=== PATIENT | female | born 1975 | race Caucasian/White ===

== ENCOUNTER 2020-01-29 10:06 | Outpatient (CLI) | payer BC, SELFPAY ==
--- NOTE | ~2020-01-29 | XR_ITS ---
EXAMINATION: XR ankle RT min 3V EXAM DATE: 01/29/2020 10:27 INDICATION: Right ankle sprain, pain. Follow-up. TECHNIQUE: Right ankle frontal, lateral and oblique projections obtained and reviewed. Images were t aken with weightbearing. FINDINGS: The right ankle mortise appears intact. There are no acute fractures or dislocations iden tified. There is no subcutaneous gas. The soft tissue is unremarkable. There are no radiopaque fo reign bodies. IMPRESSION: 1. Unremarkable XR ankle RT min 3V exam. Reviewed, dictated and finalized at location A. RONMENTAL HEALTH AND SAFETY LEADER
== END 2020-01-29 10:07 | disposition home or self-care (01) ==
LOC: ANHIMG 10:13
PROVIDERS: PCP Family Medicine; Visit Provider Podiatrist Foot & Ankle Surgery
DX: S93.401A Sprain of unspecified ligament of right ankle, initial encounter (principal)
CPT/HCPCS: 73610

== ENCOUNTER → 2020-02-05 08:28 | Outpatient (CLI) | payer BC, SELFPAY ==
--- NOTE | ~2020-02-05 | MR_ITS ---
EXAMINATION: MR ankle RT wo con DATE: 02/05/2020 09:09 INDICATION: Right ankle pain. TECHNIQUE: Magnetic resonance imaging (MRI) of the right ankle was performed without intravenous cont rast. Sequences included sagittal PD-weighted FS FSE, sagittal PD-weighted FSE, coronal PD-weighted F S FSE, coronal PD-weighted FSE, axial PD-weighted FS FSE, and axial PD-weighted FSE. COMPARISON: Right ankle radiographs 01/29/2020 FINDINGS: Medial ankle ligaments: There are changes of prior sprain of superficial component of the deltoid ligament characterized by i ncreased signal intensity. The deep component of the deltoid ligament is normal. Lateral ankle ligaments: The anterior and posterior talofibular ligaments, calcaneofibular ligament, and anterior and posterio r tibiofibular ligaments are intact. Tendons: There is mild Achilles tendinopathy. The peroneal tendons and medial ankle tendons are normal. Extens or digitorum longus tendon is obscured by magic angle artifact. The anterior ankle tendons are intact . Plantar fascia: Normal. Bones/other: There is a nondisplaced fracture of superior aspect of anterior process of calcaneus. There is edema in extensor hallucis brevis muscle. There is subcutaneous edema superficial to extensor hallucis brev is muscle. There is bone marrow edema in medial aspect of talar head and neck, consistent with contus ion. Partially visualized is edema of head of fifth metatarsal. Fluid: There are small effusions of some of the midfoot joints. IMPRESSION: 1. Nondisplaced fracture of superior aspect of anterior process of calcaneus. 2. Partially visualized edema in head of fifth metatarsal, which may be secondary to a fracture or ar thritis. Right foot radiographs are recommended. Reviewed, dictated and finalized at location A. TIES PAINTER IMPRESSION: 1. Nondisplaced fracture of superior aspect of anterior process of calcaneus. 2. Partially visualized edema in head of fifth metatarsal, which may be seconda ry to a fracture or arthritis. Right foot radiographs are recommended.
== END ==
PROVIDERS: PCP Family Medicine; Visit Provider Podiatrist Foot & Ankle Surgery
DX: S92.002A Unspecified fracture of left calcaneus, initial encounter for closed fracture (principal); S93.401A Sprain of unspecified ligament of right ankle, initial encounter; R60.0 Localized edema
CPT/HCPCS: 73721

== ENCOUNTER → 2020-04-22 03:55 | Outpatient (CLI) | payer BC, SELFPAY ==
[2020-04-23 12:41] LABS: SARS-CoV-2 RNA PCR Positive
== END ==
PROVIDERS: PCP Family Medicine; Visit Provider Podiatrist Foot & Ankle Surgery
DX: Z01.812 Encounter for preprocedural laboratory examination (principal); U07.1 COVID-19
CPT/HCPCS: C9803; U0003; U0005

== ENCOUNTER 2020-04-23 10:01 | Outpatient (CLI) | payer BC, SELFPAY ==
--- NOTE | 2020-04-23 10:03 | ECG_ITS ---
Measurements Intervals Handley Rate: 90 P: 36 NH: 185 QRS: 39 QRSD: 90 T: 14 QT: 340 QTc: 417 Interpretive Statements SINUS RHYTHM NORMAL ECG Electronically Signed On 04-23-2020 10:52:39 INSTRUCTOR ADJUNCT PHARMACY TECHNICIAN by Rony Kearney D.O.
[2020-04-23 10:52] LABS: Anion Gap 7 mmol/L (8-16); Blood Urea Nitrogen 15 mg/dL (7-17); Calcium 8.5 mg/dL (8.4-10.2); Carbon Dioxide 25 mmol/L (22-30); Chloride 105 mmol/L (98-107); Estimated Glomerular Filt Rate > 60; Glucose 141 mg/dL (65-105); Potassium 3.3 mmol/L (3.4-5.0); Sodium 137 mmol/L (137-145)
== END 2020-04-23 10:02 | disposition home or self-care (01) ==
LOC: ANHSURGERY 10:03
PROVIDERS: Anesthesiology; PCP Family Medicine; Visit Provider Podiatrist Foot & Ankle Surgery
DX: Z01.818 Encounter for other preprocedural examination (principal); I10 Essential (primary) hypertension
CPT/HCPCS: 36415; 80048; 93005

== ENCOUNTER 2020-05-30 01:18 | Day surgery (SDC) | payer BC, SELFPAY ==
[2020-04-22 11:54] VITALS: BMI 31.1
--- NOTE | 2020-05-26 10:29 | PC.NURSE ---
PT STATES HEALTH HISTORY UNCHANGED SINCE PHONE INTERVIEW 04/22/20, EXCEPT FOR COVID POSITIVE RESULT. PT STATES SYMPTOMS CONSISTED OF SINUS TYPE SYMPTOMS AND HEADACHE. DENIES RESPIRATORY SYMPTOMS. NEW INSTRUCTIONS FOR DOS REVIEWED WITH PT.
--- NOTE | 2020-05-29 09:50 | P.PNAN_ITS ---
Anes - Initial Pre Proc Eval Procedure: Operation Date: 05/30/20 07:30 Proposed Procedures p Open Arthrotomy Calcaneal Cuboid Joint Right Foot With Removal Fracture Fragment - Jayesh Larkin JR, MD Date/Time: 05/29/20 09:50 Surgeon: Jayesh Larkin JR, MD Pre Op Diagnosis: Fx Frag, anterior calcaneous rt foot Patient Data Age: 44 Gender: F Height: 1.57 m Weight: 77.3 kg Allergies Allergy/AdvReac Type Severity Reaction Status Date / Time latex Allergy Severe Hives Verified 05/30/20 06:29 Penicillins Allergy Severe Difficulty Verified 05/30/20 06:29 Breathing Home Medications Medication Instructions Recorded Confirmed Type duloxetine 60 mg PO DAILY 04/22/20 05/30/20 History lisinopril-hydrochlorothiazide 1 tablet PO DAILY 04/22/20 05/30/20 History Patient hx anesthesia problems: post op nausea/vomiting Family hx anesthesia problems: none [facility], [facility] Past Medical History Medical History (Updated 05/29/20 @ 09:51 by Kevin Schaefer DO) Hypertension Migraine PONV (postoperative nausea and vomiting) Surgical History Surgical History (Updated 05/29/20 @ 09:51 by Kevin Schaefer DO) History of cholecystectomy History of tonsillectomy Social History Social History Smoking status: Never smoker Living arrangements: with family Spiritual care concerns: No Anes - Eval Final PreProcedure Day of Procedure 05/29/20 09:50 Patient weight: obese Heart: regular rate and rhythm Lungs: clear to auscultation and normal air movement Airway: Mallampati scale class III Neurological: alert and oriented Last oral intake: >/= 8 hours ASA classification: III Emergent: no Anesthetic plan: proceed Anesthesia type and monitoring: general LMA and standard monitoring Informed Consent: The patient's anesthetic plan and its attendant risks and benefits were discussed with the patient/family/POA. Questions were solicited and answers provided to the satisfaction of the patient/family/POA.
[2020-05-30] VITALS (8 sets, daily range): BP systolic 118–147; BP diastolic 66–93; PULSE 80–98; RESP 10–16; TEMP 36.2–37; O2SAT 97–100
--- NOTE | ~2020-05-30 | XR_ITS ---
EXAMINATION: XR surgery orthopedic EXAM DATE: 05/30/2020 08:26 INDICATION: Right foot surgery. TECHNIQUE: Fluoroscopy used during XR surgery orthopedic performed by Dr. Jayesh Larkin JR MD. Radiologist was not present for the imaging or procedure. The DAP for this procedure was 2.7 cGycm2. FINDINGS: 2 fluoroscopic images centered over the right mid foot. There is orthopedic pin with tip o verlying the lateral aspect calcaneal anterior process on both projections. Correlate with procedur e note. IMPRESSION: Fluoroscopy used during right foot surgery. Reviewed, dictated and finalized at location A.
[2020-05-30] MEDS: LACTATED RINGERS 1,000 ML 30 ML IV CONT ×2 (06:47→09:02)
[2020-05-30] MEDS: SCOPOLAMINE 1.5 MG PATCH TRANSDERM (07:01)
[2020-05-30] MEDS: FAMOTIDINE 20 MG/2 ML VIAL IV PUSH (07:03)
--- NOTE | 2020-05-30 07:17 | P.HP_ITS ---
H&P: HPI History of Present Illness Date/Time: 05/30/20 07:17 Chief Complaint: Pain to the lateral hindfoot Narrative: The patient has had constant pain to the lateral hindfoot. MRI revealed a fracture fragment to the anterior calcaneus. She has failed conservative treatment with shelter immobilization and NSAIDS. Seeking surgical intervention to relieve pain. [facility] Past Medical History Medical History (Updated 05/29/20 @ 09:51 by Kevin Schaefer DO) Hypertension Migraine PONV (postoperative nausea and vomiting) Surgical History Surgical History (Updated 05/29/20 @ 09:51 by Kevin Schaefer DO) History of cholecystectomy History of tonsillectomy Social History Social History Smoking status: Never smoker Living arrangements: with family Spiritual care concerns: No Meds Home Medications and Allergies Home Medications Medication Instructions Recorded Confirmed Type duloxetine 60 mg PO DAILY 04/22/20 05/30/20 History lisinopril-hydrochlorothiazide 1 tablet PO DAILY 04/22/20 05/30/20 History Allergies Allergy/AdvReac Type Severity Reaction Status Date / Time latex Allergy Severe Hives Verified 05/30/20 06:29 Penicillins Allergy Severe Difficulty Verified 05/30/20 06:29 Breathing Vital Signs Vital Signs - 24 hr 05/30/20 06:20 Temperature 36.2 C L Pulse Rate 96 Respiratory Rate 16 Blood Pressure 129/82 Pulse Oximetry 99 Exam Extrem: Ankle/foot/toe images: 1. Pain to the calcaneal cuboid joint right foot Assessment and Plan Additional Plan Painful intra-articular fracture fragment to the anterior calcaneus right foot The patient is consented for: Arthrotomy of the calcaneal cuboid joint right foot with removal of fracture fragment
[2020-05-30] MEDS: BUPIVACAINE HCL 0.5% PF 30 ML VIAL INFILTRATE (07:30)
[2020-05-30] MEDS: CLINDAMYCIN 900 MG/D5W 50 ML 900 MG/50 ML PIGGYBACK 50 MG IVPB (07:30)
[2020-05-30] MEDS: LIDOCAINE HCL 2% LOCAL INJ 20 ML VIAL 10 ML INFILTRATE (08:11)
[2020-05-30] MEDS: fentaNYL CITRATE INJ (*CRX) 100 MCG/2 ML VIAL 25 MCG IV PUSH ×5 (08:57→09:31)
--- NOTE | 2020-05-30 08:58 | PM.OP ---
Procedure Note - Brief Procedure Note - Brief Date of procedure: 05/30/20 Pre-op diagnosis: Fx Frag, anterior calcaneous rt foot Post-op diagnosis: other (1. Fracture fragment anterior calcaneus right foot 2. Lipoma right foot) Procedure performed: 1. Open arthrotomy calcaneocuboid joint right foot with removal of fracture fragment from anterior calcaneus 2. Excision of lipoma right foot Anesthesia: GLMA and local Surgeon: Jayesh Larkin JR, DPM Estimated blood loss (mL): 1 Drains: No Packing: No Pathology: yes (1. Fracture fragment right calcaneus 2. Lipoma right foot) Complications: No immediate complications Condition: stable Disposition: same day
[2020-05-30] MEDS: oxyCODONE HCL (*CRX) 5 MG TAB IR PO (10:01)
--- NOTE | 2020-05-30 13:38 | PM.PROC ---
Procedure Note - Detailed Date of procedure: 05/30/20 Pre-op diagnosis: Fx Frag, anterior calcaneous rt foot Post-op diagnosis: other (1. Fracture fragment anterior calcaneus right foot 2. Lipoma right foot) Procedure performed: 1. Open arthrotomy calcaneal cuboid joint right foot with excision of fracture fragment 2. Excision of lipoma right foot Anesthesia: GLMA and local Surgeon: Jayesh Larkin JR, DPM Estimated blood loss (mL): 1 Drains: No Packing: No Pathology: yes (1. Lipoma right foot 2. Fracture fragment right calcaneus) Complications: No immediate complications Condition: stable Disposition: same day Findings: PROCEDURE IN DETAIL: Under mild sedation, the patient was brought into the operating room and placed on the operating table in the supine position. A pneumatic thigh tourniquet was placed about the patient's ankle. Following general anesthesia a proximal ankle ring block was performed utilizing 20ccs of Exparel. The foot and ankle was then scrubbed, prepped, and draped in the usual aseptic manner. An Esmarch bandage was then used to exsanguinate the patient's foot and ankle and the pneumatic ankle tourniquet was then inflated to 250 mmHg. Surgery began in the following manner: Attention was directed to the lateral aspect of the hindfoot. An incision was made starting just distal to the lateral malleolus and extending towards the base of the 4th metatarsal. The incision was continued deep down through the subcutaneous tissues using sharp and blunt dissection. All bleeders were ligated and cauterized as necessary. A large lipoma was noted from the distal fibula completely covering the extensor digitorum brevis muscle belly. It was carefully and excised from the deep fascia, it was multilobulated and sent for gross and histopathology. The extensor digitorum brevis muscle was detached form its origin and retracted superiorly and distally to expose the calcaneal cuboid joint. The superior anterior lateral aspect of the calcaneus had a 8mm by 4mm by 6mm fragment of bone that was fragmented and fibrosed to the calcaneus. Utilizing a 15 blade the fibrous tissue was freed from the fracture fragment. The fragment was passed was from the field and sent for gross and histopathology. No other fragmented bone was noted. Fluoroscopy was used to confirm the bone fragment resection. The surgical site was flushed with copious amounts of sterile saline. Next, lateral closure began in a layered fashion, the Extensor digitorum brevis muscle was repositioned to its origin with 2.0 Vicryl. Next, the subcutaneous structures were reapproximated and coapted utilizing 4-0 Vicryl in simple interrupted suture technique. Finally, the skin was reapproximated and coapted utilizing a 4-0 Monocryl in a running subcuticular suture fashion technique. Upon completion of the procedure, the incision was dressed with Steri-Strips [id number], Adaptic, 4x4s, Kerlix, and Coban. The pneumatic ankle tourniquet was then deflated and a prompt hyperemic response was noted to all digits of the affected foot. Next, a CAM boot was then applied to the involved lower extremity. The patient did very well with the procedure and the anesthesia. The patient was transferred to the recovery room with vital signs stable and vascular status intact to all toes of the foot. Following a period of postoperative monitoring, the patient will be discharged home on the following written and oral postoperative instructions: 1. Keep the dressing clean, dry, and intact. Use a cast protector bag with showering. 2. The patient to be strictly nonweightbearing with knee scooter, crutches or walker. 3. Patient should ice and elevate the foot when at rest for the next 3 days. 4. Patient should be on bed rest for 3 days with bathroom privileges only, utilizing her knee scooter at all times. The patient should contact Dr. Larkin for all postop care if any problems arise. Cris
--- NOTE | 2020-05-30 14:07 | PM.PROC ---
Procedure Note - Detailed Date of procedure: 05/30/20 Pre-op diagnosis: Fx Frag, anterior calcaneous rt foot Surgeon: Jayesh Larkin JR, MD Condition: stable
== END 2020-05-30 11:15 | disposition home or self-care (01) ==
PROVIDERS: PCP Family Medicine; Visit Provider Podiatrist Foot & Ankle Surgery
PROC: (CPT 28750; principal; 2020-05-30 07:30)
DX: S92.021A Displaced fracture of anterior process of right calcaneus, initial encounter for closed fracture (principal); D17.23 Benign lipomatous neoplasm of skin and subcutaneous tissue of right leg; X58.XXXA Exposure to other specified factors, initial encounter; I10 Essential (primary) hypertension; E66.9 Obesity, unspecified; Z68.34 Body mass index [BMI] 34.0-34.9, adult
CPT/HCPCS: 28415; 88304; 88305; 88309; 88311; A9270; C9290; J1100; J1200; J2250; J2405; J2704; J3010; J7120; L2116

== ENCOUNTER 2022-10-31 11:25 | Emergency (ER) | payer BC, SELFPAY ==
--- NOTE | ~2022-10-31 | XR_ITS ---
EXAMINATION: XR elbow RT min 3V DATE: 10/31/2022 12:00 INDICATION: Right elbow pain. TECHNIQUE: 4 views of right elbow were obtained. COMPARISON: None. FINDINGS: Bone alignment is normal. No fracture. Joint spaces are normal. No elbow joint effusion. IMPRESSION: 1. Normal right elbow. Reviewed, dictated and finalized at location A. IMPRESSION: 1. Normal right elbow.
[2022-10-31 11:48] VITALS: BP 134/100; PULSE 98; RESP 16; TEMP 36.2; O2SAT 99
[2022-10-31 11:51] VITALS: BP 134/100; PULSE 98; RESP 16; TEMP 36.2; O2SAT 99
--- NOTE | 2022-10-31 12:05 | ED.GENADULT ---
HPI - General Adult General Chief complaint: Extremity Injury, Upper Stated complaint: Injured Right arm Source: patient Mode of arrival: ambulatory Limitations: no limitations History of Present Illness HPI narrative: Pt presents for evaluation of right elbow pain for the past month. She states her pain started after she bumped her elbow against an object on her deck six times. Pain has been constant since that time. She rates her pain as 9/10 in severity. 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 She was told that her symptoms may be 2/2 epicondylitis. Pain shoots down through her forearm. She has numbness and tingling in the 3rd, 4th and 5th digits of the right hand. She is right hand dominant. She has been using an elbow brace without considerable improvement in her symptoms. NSAIDs helped to somewhat reduce her pain. She has underlying RA for which she takes cymbalta. She has an appt to see her primary this week but states she did not want to wait that long to be seen. Related Data Home Medications Medication Instructions Recorded Confirmed duloxetine 60 mg capsule,delayed 60 mg PO DAILY 04/22/20 10/31/22 release losartan 100 1 tablet PO DAILY 10/31/22 10/31/22 mg-hydrochlorothiazide 12.5 mg tablet omeprazole 40 mg capsule,delayed mg 10/31/22 release Allergies Allergy/AdvReac Type Severity Reaction Status Date / Time latex Allergy Severe Hives Verified 10/31/22 11:45 Penicillins Allergy Severe Difficulty Verified 10/31/22 11:45 Breathing Review of Systems Review of Systems: CONSTITUTIONAL: Denies fever, chills, or sweats. EYES: Denies visual changes, redness, or discharge. ENT: Denies rhinorrhea, congestion, sore throat, or otalgia. CARDIOVASCULAR: Denies chest pain, palpitations, or edema. RESPIRATORY: Denies cough or dyspnea. GASTROINTESTINAL: Denies abdominal pain, nausea, vomiting, or diarrhea. GENITOURINARY: Denies dysuria or hematuria. SKIN: Denies rash or itching. MUSCULOSKELETAL: Reports right elbow pain. Denies obvious swelling. NEUROLOGIC: Reports numbness in the 3rd-5th digits of right hand. Denies headache, dizziness, or weakness. PSYCHIATRIC: Denies anxiety or depression. [facility] [place] Past Medical History Medical History (Updated 10/31/22 @ 12:15 by ADONIS Lyles, ) Hypertension Lateral epicondylitis Migraine PONV (postoperative nausea and vomiting) Surgical History Surgical History History of cholecystectomy History of tonsillectomy Family History Family History Mother Hypertension Social History Social History Smoking status: Never smoker Living arrangements: with family Gender identity (if verbalized by the patient): Female Sexual Orientation (if Verbalized by the Patient): Straight or Heterosexual Spiritual care concerns: No Exam Narrative: GENERAL: Well-appearing, well-nourished, and in no acute distress. HEAD: Normocephalic, atraumatic. EYES: PERRLA and EOMI. ENT: Nares clear, no rhinorrhea or epistaxis. Mucous membranes moist. Oropharynx without tonsillar hypertrophy exudate or other lesions. Bilateral TMs pearly bowling nonbulging NECK: Supple. No adenopathy or masses. No carotid bruits or JVD CHEST: Clear to auscultation. No respiratory distress. No wheezes rales or rhonchi HEART: Regular rate and rhythm. No murmur heard. Normal peripheral pulses. ABDOMEN: Soft, nontender, nondistended, normal active bowel sounds. EXTREMITIES: Full ROM of right elbow but exhibits hesitancy with pronation and supination of the extremity. There is tenderness over right lateral epicondyle. No obvious swelling. 4/5 hand volcanology teacher strength on right. 5/5 hand volcanology teacher strength on left. SKIN: Warm, dry, no rash. NEURO: No focal deficits. Alert and orie
== END 2022-10-31 12:18 | disposition home or self-care (01) ==
PROVIDERS: Emergency Provider Nurse Practitioner
DX: M77.10 Lateral epicondylitis, unspecified elbow (principal); I10 Essential (primary) hypertension
CPT/HCPCS: 73080; 99213; G0463

== ENCOUNTER 2022-11-24 09:15 | Outpatient (RCR) | payer BC, SELFPAY ==
--- NOTE | 2022-11-17 10:09 | OTOPEVAL1 ---
Assessment and note entered by Dav Eng, MIKAYLA/Araceli, CHT Evaluation Information Assessment Status Evaluation Diagnosis Right lateral epicondylitis and right ulnar neuropathy Subjective Information Patient reports having on and off symptoms for years . 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 Difficulties with lifting, reports she frequently drops items as she has sudden, sharp pains when lifting items. She is right handed. Reported Pain Level Pain Score 7: Self Report Assessment OT Clinical Summary Patient referred to outpatient OT with right elbow pain with dx of ulnar neuropathy and lateral epicondylitis. Today a custom wrist cock up splint was fabricated and issued. She has been educated on phase I and II of lateral epicondylitis protocol: managing pain and improving flexibility. Continued skilled OT indicated for HEP instruction and progression, manual therapy, therapeutic activities and exercise, as well as use of modalities to reduce pain and improve functional strength of the right UE. Plan of Care Interventions Therapeutic Exercise,Manual Therapy,Therapeutic Activities,Hot Pack/Cold Pack,Check Out for Orthotic/Pr,Ultrasound,Paraffin OT Services Indicated Yes Treatment Frequency and 1x/week for 6 weeks Duration These treatments will address the objective and functional deficits as defined above. The patient will be advanced safely and appropriately in order for the patient to progress towards his/her prior level of function. Additional exercises will be introduced and as well as a comprehensive home exercise program upon discharge, if needed, ?to ensure carryover of functional gains achieved in the clinic. This treatment plan has been reviewed and agreement upon by the patient.
--- NOTE | 2022-11-17 10:09 | OPREHPOC ---
Outpatient Therapy Plan of Care This is a Multidisciplinary Plan of Care that may contain components documented by all disciplines (PT, OT, and ST.) OT Problem 1 OT Problem #1 Knowledge Deficit OT Goal 1 Goal 1. Patient to be independent with instructed materials. 2. Patient to adhere to splint wearing schedule. Target Visit 6 OT Problem 2 OT Problem #2 Pain OT Goal 1 Goal 1. Patient to report reduced right elbow pain to 4 /10 or less at worst . 2. Patient to be independent with non-medication pain management. OT Problem 3 OT Problem #3 Impaired Strength OT Goal 1 Goal 1. Patient to be able to progress to phase III of lateral epicondylitis protocol: strengthening as demonstrated by being able to complete wrist flexion/extension strengthening exercises against gravity with 1 lb. free weight x20 reps without pain. Target Visit 6
--- NOTE | 2022-12-01 10:15 | PCOTNOTE ---
Patient called & cancelled scheduled appointment this date. She reports her doctor told her to cancel her therapy this week due to pain.
--- NOTE | 2022-12-08 08:55 | PCOTNOTE ---
Patient did not show up for scheduled appointment this date. Called patient and left voicemail regarding missed appt and reminded of next appt.
--- NOTE | 2022-12-13 12:27 | PCOTNOTE ---
Patient cancelled tx tomorrow stating she wants to follow up with Dr. Ku before continuing therapy due to pain.
--- NOTE | 2022-12-23 10:48 | OTOPDC ---
Assessment and note entered by Dav Eng, MIKAYLA/Araceli, CHT Discharge Summary 12/23/22 OT Clinical Summary Patient did not show for scheduled appointment today. Called patient who reports she followed up with MD and she is being scheduled for surgery. Discharging from OT today. Therapy summary: The patient attended the initial OT evaluation and 1 follow up session. Therapy fabricated a wrist cock up brace, educated on manual tx, gentle active stretches, and education on elbow positioning during ADLs to reduce cubital tunnel symptoms. She continued to have high amounts of pain despite therapeutic intervention. She cancelled and did not show to multiple appointments due to being in too much pain.
== END 2022-12-23 11:41 | disposition home or self-care (01) ==
LOC: ANHOT 09:15
PROVIDERS: Visit Provider Plastic Surgery
DX: M77.10 Lateral epicondylitis, unspecified elbow (principal); G56.21 Lesion of ulnar nerve, right upper limb
CPT/HCPCS: 97018; 97110; 97140; 97166; 99199; L3906

== ENCOUNTER 2022-12-21 12:25 | Outpatient (CLI) | payer BC, SELFPAY ==
--- NOTE | 2022-12-21 14:30 | NEURO_ITS ---
Impression: # Non-diabetic complains of right elbow discomfort. # Normal Nerve Conduction Study, no Carpal Tunnel Syndrome or ulnar neuropathy. # Normal Needle/EMG exam. # Clinical correlation recommended. Nerve Conduction Studies Anti Sensory Summary Table Stim Site NR Peak (ms) P-T Amp (?V) Site1 Site2 Delta-P (ms) Dist (cm) Prabhakar (m/s) Right Median Anti Sensory (2-3nd Digit) Wrist 2.6 38.1 Wrist 2-3nd Digit 2.6 14.0 54 Wrist 2.6 41.3 Wrist 2-3nd Digit 2.6 14.0 54 Right Radial Anti Sensory (Base 1st Digit) Wrist 1.8 31.5 Wrist Base 1st Digit 1.8 0.0 Right Ulnar Anti Sensory (5th Digit) Wrist 2.4 44.1 Wrist 5th Digit 2.4 14.0 58 Motor Summary Table Stim Site NR Onset (ms) O-P Amp (mV) Site1 Site2 Delta-0 (ms) Dist (cm) Prabhakar (m/s) Right Median Motor (Abd Poll Brev) Wrist 2.8 3.3 Elbow Wrist 4.1 27.0 66 Elbow 6.9 2.5 Right Ulnar Motor (Abd Dig Minimi) Wrist 2.4 5.7 A Elbow Wrist 4.6 28.0 61 A Elbow 7.0 4.5 F Wave Studies NR F-Lat (ms) L-R F-Lat (ms) Right Median (Mrkrs) (Abd Poll Brev) 23.81 Right Ulnar (Mrkrs) (Abd Dig Min) 24.98 EMG Side Muscle Nerve Root Ins Act Fibs Amp Dur Recrt Comment Right 1stDorInt Ulnar C8-T1 Nml Nml Nml Nml Nml Right Ext Indicis Radial (Post Int) C7-8 Nml Nml Nml Nml Nml Right Ext Digitorum Radial (Post Int) C7-8 Nml Nml Nml Nml Nml Right BrachioRad Radial C5-6 Nml Nml Nml Nml Nml Right PronatorTeres Median C6-7 Nml Nml Nml Nml Nml Right Abd Poll Brev Median C8-T1 Nml Nml Nml Nml Nml MTDD
== END 2022-12-21 12:26 | disposition home or self-care (01) ==
PROVIDERS: Visit Provider Plastic Surgery
DX: G56.21 Lesion of ulnar nerve, right upper limb (principal)
CPT/HCPCS: 95886; 95909

== ENCOUNTER 2023-02-09 09:24 | Outpatient (CLI) | payer BC, SELFPAY ==
[2023-02-09 10:02] LABS: Anion Gap 10 mmol/L (8-16); Blood Urea Nitrogen 11 mg/dL (7-17); Calcium 9.2 mg/dL (8.4-10.2); Carbon Dioxide 23 mmol/L (22-30); Chloride 104 mmol/L (98-107); Estimated Glomerular Filt Rate > 60; Glucose 121 mg/dL (65-110); Potassium 3.9 mmol/L (3.4-5.0); Sodium 137 mmol/L (137-145)
== END 2023-02-09 09:25 | disposition home or self-care (01) ==
LOC: ANHSURGERY 09:29
PROVIDERS: Anesthesiology; PCP Family Medicine; Visit Provider Plastic Surgery
DX: Z01.818 Encounter for other preprocedural examination (principal); T50.2X5A Adverse effect of carbonic-anhydrase inhibitors, benzothiadiazides and other diuretics, initial encounter
CPT/HCPCS: 36415; 80048

== ENCOUNTER 2023-02-11 01:46 | Day surgery (SDC) | payer BC, SELFPAY ==
[2023-02-07 15:27] VITALS: BMI 35.4
--- NOTE | 2023-02-07 15:56 | SUR.PREOP ---
Addendum entered by Janelle Reina RN 02/08/23 12:18: PLEASE NOTE NOTHING TO EAT OR DRINK AFTER MIDNIGHT EXCEPT FOR SMALL SIP OF WATER TO TAKE CYMBALTA OVERLOCKER ON DAY OF SURGERY. Original Note: Report to the Outpatient Waiting Room, entrance under the [facility] located off [facility], at time 11:30am on date 02/11/2023. Planned Procedure Time: 1:30pm. Time changes happen often and if your time is changed the preop area will call you the afternoon before. - You and your visitor will be asked to self-screen and do not enter if you have any COVID symptoms. - A mask is optional within the hospital at this time. Patients may have clear liquids (water, carbonated beverages, clear teas, apple juice) until 3 hours prior to surgery with a maximum of 20 ounces- 10:30am. - No food from midnight until time of surgery - Infants may have breast milk until 4 hours before surgery, infant formula 6 hours prior to surgery. - Children will be allowed to drink immediately following surgery. If applicable, please bring a bottle or sippy cup to assist with drinking. Juice, water, soda, and popsicles are readily available. For infants on formula, please bring formula the day of surgery. Pacifiers are allowed. Take the following medications with a SIP of water the morning of surgery: Cymbalta DO NOT STOP ANY OF YOUR OTHER PRESCRIPTION MEDICATIONS PRIOR TO SURGERY ?EXCEPT THE FOLLOWING Medications to discontinue per physician N/A Date to take last dose N/A Please no make-up, nail vietnamese, hairspray, perfume, deodorant, or body powder the day of surgery. No jewelry (including any body piercings) or valuables the day of surgery, leave them at home. Please take a shower or bath the night before, or the morning of, surgery with an antibacterial soap. Wear comfortable, loose fitting clothing. Children are encouraged to wear pajamas. - Jewelry must be removed prior to entering the operating room. Rings and piercings that are not removed may be cut off. - The hospital will not accept responsibility for valuables. - Please leave all valuables, including medications, at home the day of surgery. If you are going home after surgery, a licensed logging truck driver must drive you home. - NO public transportation without another adult if you receive anesthesia. - We recommend that an adult stay with you for 24 hours following discharge. - We also recommend that you do not drive, make important decision, drink alcoholic beverages, or take any drugs that were not prescribed by your health care provider for at least 24 hours after your discharge time. For Pediatric surgeries, we recommend two adults accompany the child home. Follow any additional instructions given to you from your surgeon. If you or anyone in your household have experienced Covid symptoms in the past week, please notify your surgeon or the nurse liaison at the phone number below for possible testing. Telephone instructions given to patient- Mercedes and asked if any additional questions and then verbalized understanding. Patient advised to call surgeon office or pre surgery nurse liaison [phone] if any additional questions.
--- NOTE | 2023-02-11 06:54 | PM.HPGS ---
History of Present Illness History of Present Illness Consent: Patient seen and examined in pre-operative holding area. No interval change in medical history or symptoms. Patient recalls previous discussion of benefits and alternatives to procedure. Continues to desire to proceed with right cubital tunnel release. Reviewed procedure, post-op expectations and risks including but not limited to bleeding, infection, injury to tendon/nerve/vessel, decreased hand function, stiffness, RSD, no change or worsening of symptoms. I discussed the possible use of assistants and their participation in the case. Patient stated understanding and signed the consent form wishing to proceed. Chief complaint: right ulnar neuropathy at elbow Narrative: Mercedes Roger is a 47 year old female here for right cubital tunnel release as above Review of Systems Review of Systems: All systems reviewed & are unremarkable except as noted in HPI and below PMFSH Past Medical History Medical History (Updated 11/04/22 @ 15:15 by Miko Ku MD) Hypertension Lateral epicondylitis Migraine PONV (postoperative nausea and vomiting) Surgical History Surgical History History of cholecystectomy History of tonsillectomy Family History Family History Mother Hypertension Social History Social History (Updated 12/22/22 @ 10:58 by Tangela Martin MA) Smoking status: Never smoker Alcohol intake: current Drinks per week: 3 Lack of Transportation: No Lack of Food: Never True Current Housing: I Have Housing Concerned About Future Housing: No Difficulty Paying Gas/Electric Bills: No Difficulty Paying for Meds: No Currently Unemployed: No Education: Associate Degree Difficulty w/ Childcare or Family Care: No Living arrangements: with family Gender identity (if verbalized by the patient): Female Sexual Orientation (if Verbalized by the Patient): Straight or Heterosexual Spiritual care concerns: No Meds Home Medications and Allergies Home Medications Medication Instructions Recorded Confirmed Type duloxetine 60 mg capsule,delayed 60 mg PO DAILY 04/22/20 02/11/23 History release (Cymbalta) losartan 100 1 tablet PO DAILY 10/31/22 02/11/23 History mg-hydrochlorothiazide 12.5 mg tablet (Hyzaar) omeprazole 40 mg capsule,delayed 40 mg PO DAILY 10/31/22 02/11/23 History release amoxicillin 875 mg-potassium 1 tablet PO BID 02/07/23 02/11/23 History clavulanate 125 mg tablet Allergies Allergy/AdvReac Type Severity Reaction Status Date / Time latex Allergy Severe Hives Verified 02/11/23 11:10 Penicillins Allergy Severe Difficulty Verified 02/11/23 11:10 Breathing Exam Narrative: unchanged from previous Assessment and Plan Assessment and plan (1) Entrapment of right ulnar nerve at elbow: Code(s): G56.21 - Lesion of ulnar nerve, right upper limb Status: Acute Assessment and Plan: continue with surgery as above
--- NOTE | 2023-02-11 06:55 | W.PM.PROC2 ---
Procedure Note - Detailed Date of Procedure 02/11/23 Pre-op Diagnosis right ulnar neuropathy at elbow Post-op Diagnosis Same Procedure Performed right cubital tunnel release Surgeon Miko Ku MD Anesthesia MAC Description of Procedure CUBITAL TUNNEL RELEASE INFORMED CONSENT:The patient was seen and examined and marked in the pre-op area.? The patient signed the consent form. PROCEDURE IN DETAIL: The patient taken back to OR on the stretcher in supine position. Time out performed with anesthesia, surgeon and staff agreeing on patient's name site and surgery to be performed SCDs were placed on the lower extremities and inflated A tourniquet was placed on {right} upper extremity and antibiotics given IV After anesthesia administered sedation I injected {10}cc 1%lido with epi and 0.5% marcaine plain at the operative site The?{right upper extremity}?was prepped and draped in sterile fashion the??{right upper extremity} was??exsanguinated with Esmarch bandage and tourniquet inflated to 250mmHg I next proceeded with making a longitudinal incision between two heads for flexor carpi ulnaris at end of {right} cubital tunnel with 15 blade scalpel.? Littler scissors were used to spread down to FCU fascia.? An incision was made in FCU fascia and ulnar nerve identified exiting cubital tunnel.? I proceeded with complete retrograde release of the cubital tunnel including 7cm proximal for the intermuscular septum.? The nerve appeared healthy with visible vaso nervorum.? There was no subluxation on full elbow range of motion. ? I irrigated with normal saline and closure with 4-0 monocryl for dermis and subcuticular. The incision was covered with Dermabond then 4x4s, trinity, and a posterior elbow splint for patient safety, security and comfort and secured with alfredo bandages after the tourniquet was let down noting the hand was warm and well perfused.? Patient awaken from anesthesia and transferred to recovery in stable condition Complications - none EBL- 1cc Disposition - home in stable conditions [facility] Billing Surgery - Charge Forward: Surgery Billing ([id number])
[2023-02-11 10:42] VITALS: BP 140/91; PULSE 98; RESP 18; TEMP 36.7; O2SAT 98
[2023-02-11] MEDS: LACTATED RINGERS 1,000 ML 30 ML IV CONT (11:00)
--- NOTE | 2023-02-11 11:15 | WPDANESEPPF ---
Anes - Initial Pre Proc Eval Procedure: Operation Date: 02/11/23 13:30 Proposed Procedures p Right Cubital Tunnel Release - Miko Ku MD Date/Time: 02/11/23 11:15 Surgeon: Miko Ku MD Pre Op Diagnosis: right ulnar neuropathy at elbow Patient Data Age: 47 Gender: F Height: 1.56 m Weight: 90 kg Last Vital Signs Temp 36.7 C 02/11/23 10:42 Pulse 98 02/11/23 10:42 Resp 18 02/11/23 10:42 BP 140/91 H 02/11/23 10:42 Pulse Ox 98 02/11/23 10:42 O2 Del Method Room Air 02/11/23 10:42 Allergies Allergy/AdvReac Type Severity Reaction Status Date / Time latex Allergy Severe Hives Verified 02/11/23 11:10 Penicillins Allergy Severe Difficulty Verified 02/11/23 11:10 Breathing Home Medications Medication Instructions Recorded Confirmed Type duloxetine 60 mg capsule,delayed 60 mg PO DAILY 04/22/20 02/11/23 History release (Cymbalta) losartan 100 1 tablet PO DAILY 10/31/22 02/11/23 History mg-hydrochlorothiazide 12.5 mg tablet (Hyzaar) omeprazole 40 mg capsule,delayed 40 mg PO DAILY 10/31/22 02/11/23 History release amoxicillin 875 mg-potassium 1 tablet PO BID 02/07/23 02/11/23 History clavulanate 125 mg tablet Patient hx anesthesia problems: none Family hx anesthesia problems: none Results Review: All pre-operative results and documents have been reviewed as part of the pre-operative evaluation. [facility] Past Medical History Medical History Hypertension Lateral epicondylitis Migraine PONV (postoperative nausea and vomiting) Surgical History Surgical History History of cholecystectomy History of tonsillectomy Family History Family History Mother Hypertension Social History Social History Smoking status: Never smoker Alcohol intake: current Drinks per week: 3 Lack of Transportation: No Lack of Food: Never True Current Housing: I Have Housing Concerned About Future Housing: No Difficulty Paying Gas/Electric Bills: No Difficulty Paying for Meds: No Currently Unemployed: No Education: Associate Degree Difficulty w/ Childcare or Family Care: No Living arrangements: with family Gender identity (if verbalized by the patient): Female Sexual Orientation (if Verbalized by the Patient): Straight or Heterosexual Spiritual care concerns: No Anes - Eval Final PreProcedure Day of Procedure 02/11/23 11:15 Patient weight: obese Heart: regular rate and rhythm Lungs: clear to auscultation Airway: Mallampati scale class III Neurological: alert and oriented Last oral intake: >/= 8 hours ASA classification: III Emergent: no Anesthetic plan: proceed Anesthesia type and monitoring: general GIVS and standard monitoring Results Review: All pre-operative results and documents have been reviewed as part of the pre-operative evaluation. Informed Consent: The patient's anesthetic plan and its attendant risks and benefits were discussed with the patient/family/POA. Questions were solicited and answers provided to the satisfaction of the patient/family/POA.
[2023-02-11] MEDS: ceFAZolin 2 GM/D5W 50 ML 2 GM/50 ML BAG IVPB (11:25)
[2023-02-11] MEDS: LIDO 1%/EPINEPHRINE 1:100,000 50 ML VIAL 14 ML INFILTRATE (12:01)
[2023-02-11] MEDS: KETOROLAC 30 MG/ML VIAL (*BKC) IV PUSH (12:04)
[2023-02-11 12:05] VITALS: BP 128/68; PULSE 116; RESP 16; O2SAT 97
[2023-02-11 12:35] VITALS: BP 129/87; PULSE 108
[2023-02-11 13:05] VITALS: BP 124/79; PULSE 92
[2023-02-11 13:25] VITALS: BP 128/84; PULSE 88
== END 2023-02-11 13:31 | disposition home or self-care (01) ==
PROVIDERS: PCP Family Medicine; Visit Provider Plastic Surgery
PROC: (CPT 64718; principal; 2023-02-11 13:30)
DX: G56.21 Lesion of ulnar nerve, right upper limb (principal); I10 Essential (primary) hypertension; E66.9 Obesity, unspecified; Z68.36 Body mass index [BMI] 36.0-36.9, adult; Z90.49 Acquired absence of other specified parts of digestive tract
CPT/HCPCS: 64718; J0690; J1100; J1885; J2250; J2405; J2704; J7120

== ENCOUNTER 2024-12-14 09:20 | Outpatient (CLI) | payer BC, SELFPAY ==
--- NOTE | ~2024-12-14 | US_ITS ---
EXAMINATION: US pelvic complete w TV DATE: 12/14/2024 12:03 INDICATION: Right lower quadrant abdominal pain. TECHNIQUE: Multiple transabdominal and transvaginal sonographic images of the pelvis were obtained. COMPARISON: None. FINDINGS: TRANSABDOMINAL ULTRASOUND: The uterus measures 8.5 x 4.6 x 5.1 cm. There is no free fluid in the pelvis. TRANSVAGINAL ULTRASOUND: The endometrial complex measures 4 mm in thickness. There is a nabothian cyst in the cervix. The right ovary measures 2.7 x 1.1 x 1.9 cm. The left ovary measures 2.2 x 1.3 x 2.9 cm. There is normal vascular flow in the ovaries. IMPRESSION: 1. No etiology for the patient's symptoms. Reviewed, dictated and finalized at location E.
--- NOTE | ~2024-12-14 | US_ITS ---
Examination: US abdomen complete Clinical History: RT lower quadrant pain . Comparison: Abdominal x-rays today Technique: Complete abdominal sonography Findings: Liver: Normal size. Echogenic. No intrahepatic biliary ductal dilatation. Normal hepatopedal flow main portal vein. Common duct: 7 mm. Gallbladder: Removed. Spleen: Unremarkable. Pancreas: Unremarkable. Kidneys: Unremarkable. Aorta: No aneurysmal dilatation. Retrohepatic IVC: Unremarkable. IMPRESSION: 1. No acute findings. 2. Hepatic steatosis and/or diffuse hepatocellular disease. Reviewed, dictated and finalized at location R.
--- NOTE | ~2024-12-14 | XR_ITS ---
EXAMINATION: XR abdomen obstructive series, 12/14/2024 9:33 CDT HISTORY: RIGHT LOWER QUADRANT PAIN COMPARISON: No comparisons available. Technique: 3 view. Findings: Bowel gas pattern unremarkable. No obstruction. No free air. No abnormal calcifications No acute osseous abnormality. Impression: 1. No acute abnormality. Reviewed, dictated and finalized at location P. Impression: 1. No acute abnormality.
== END 2024-12-14 09:21 | disposition home or self-care (01) ==
LOC: MICIMG 09:23
PROVIDERS: PCP Family Medicine; Visit Provider Family Medicine
DX: R10.31 Right lower quadrant pain (principal)
CPT/HCPCS: 74019; 76700; 76830; 76856